=== PATIENT | male | born 1945 | race Caucasian/White ===

== ENCOUNTER 2018-05-12 09:35 | Outpatient (CLI) | payer MEDICARE, BC ==
--- NOTE | 2018-05-12 11:32 | RAD ---
TWO VIEWS OF THE CHEST: COMPARISON: None. HISTORY: Generalized edema. FINDINGS: Two views of the chest show normal sized cardiomediastinal silhouette. There is no evidence of consol idation, mass, or pleural effusion. The bones are unremarkable. IMPRESSION: No evidence of acute cardiopulmonary disease. POS: [facility]
== END 2018-05-12 09:36 | disposition home or self-care (01) ==
LOC: RAD 09:35
PROVIDERS: ATTEND Physician Assistant
DX: R60.1 Generalized edema (principal)
CPT/HCPCS: 71046

== ENCOUNTER 2018-05-12 14:18 | Inpatient (IN) | payer MEDICARE, BC ==
[2018-05-12 16:12] LABS: #Basophils 0.1 thou/uL (0.0-0.2); #Lymphocytes 1.7 thou/uL (1.20-3.40); #Monocytes 0.6 thou/uL (0.11-0.59); #Neutrophils 15.7 thou/uL (1.40-6.50); %Basophils 0.4 % (0.0-1.0); %Eosinophils 0.2 % (0.0-10.0); %Lymphocytes 9.3 % (21.0-51.0); %Monocytes 3.2 % (0.0-10.0); %Neutrophils 86.9 % (42.0-75.0); Hemoglobin 17.1 g/dL (14.0-18.0); Mean Corpuscular HGB CONC 33.2 g/dL (32.0-36.0); Mean Corpuscular Hemoglobin 30.9 pg (27.0-31.0); Mean Corpuscular Volume 93.2 fL (78.0-98.0); Mean Platelet Volume 8.6 fL (7.4-10.4); Platelet Count 347 thou/uL (130-400); Red Blood Cell (RBC) Count 5.55 mill/uL (4.70-6.10)
[2018-05-12 17:07] LABS: ALT (SGPT) 23 U/L (8-55); AST (SGOT) 43 U/L (5-34); Albumin 2.1 g/dL (3.4-4.8); Alkaline Phosphatase 143 U/L (40-150); Anion Gap 17 mmol/L (10-20); BUN (Urea Nitrogen) 48 mg/dL (8.4-25.7); Bilirubin, Total 0.4 mg/dL (0.2-1.2); Calc. Creatinine Clearance 0 mL/min (70-130); Calcium 8.3 mg/dL (7.8-10.44); Carbon Dioxide 17 mmol/L (23-31); Chloride 95 mmol/L (98-107); Estimated GFR-MDRD 64; Globulin 3.9 g/dL (2.4-3.5); Glucose 107 mg/dL (83-110); Potassium 5.3 mmol/L (3.5-5.1); Sodium 124 mmol/L (136-145)
[2018-05-12 18:13] LABS: Bilirubin Small (Negative); Blood, Urine Large (Negative); Clarity CLOUDY (Clear); Glucose, Urine (Dipstick) Negative (Negative); Leukocyte Negative (Negative); Nitrite Negative (Negative); Protein, Urine (Dipstick) > or equal to 300 mg/dL (Neg-Trace); Specific Gravity, Urine 1.029 (1.002-1.036); Urobilinogen 0.2 mg/dL (0.2-1.0); pH, Urine 5.5 (5.0-9.0)
[2018-05-12 18:18] LABS: Bacteria/HPF None Seen HPF (None Seen); RBC/HPF 21-50 HPF (0-3)
[2018-05-12 18:21] LABS: Pathc Cast-AUWi Flag 38.22 (0-2.49)
[2018-05-12 18:39] LABS: Hyaline Casts/LPF 4-6 HYALINE CAST LPF (0-3 Hyaline); Renal Epithelial None Seen HPF (0-3); Transitional Epithelial NONE SEEN HPF (0-3)
[2018-05-12] MEDS ORDERED: cefTRIAXone\\ROCEPHIN 2 GM VIAL ONE (19:02)
[2018-05-12] MEDS ORDERED: Furosemide 20 MG/2 ML VIAL ONE (19:02)
[2018-05-12] MEDS ORDERED: Acetaminophen 325 MG TAB PO PRN (21:11)
[2018-05-12] MEDS ORDERED: HYDROcodone/Acetaminophen 5/325 mg Tablet PO PRN ×2 (21:11)
[2018-05-12] MEDS ORDERED: Ondansetron PF 4 MG/2 ML Vial IVP PRN (21:11)
[2018-05-12] MEDS ORDERED: Ondansetron ODT 4 MG TAB SL PRN (21:11)
[2018-05-12] MEDS: Sodium Chloride 0.9% 1,000 ML IV SCH (21:29)
[2018-05-12 21:30] VITALS: BMI 29.0
[2018-05-12] MEDS ORDERED: Zolpidem Tartrate 5 MG TAB PO PRN (22:30)
[2018-05-12] MEDS ORDERED: Sodium Chloride 0.9% 1,000 ML IV SCH (22:45)
--- NOTE | 2018-05-12 23:17 | PDOC.EVN ---
Event Note - Event Note Event Note: H&P [id number]
--- NOTE | 2018-05-12 23:47 | HP ---
CHIEF COMPLAINT: Lower extremity swelling. HISTORY OF PRESENT ILLNESS: This is a 72-year-old male complaining for the past 2 to 3 weeks he has noted lower extremity edema. The patient states that the swelling significantly got worse in the last 2 to 3 days, so he decided to come to the ER. The patient was also noted to have pressure-like pain in his left and right lower extremities. The patient states that he does have dyspnea on exertion as well as some mild chest discomfort when he is exerting himself. The patient states that he otherwise denies any other alleviating or aggravating factors. Admits to prior medical history of hypertension and prostate hypertrophy. The patient states that he otherwise has no other associated complaints. No alleviating or aggravating factors. States that this has never happened before. The patient was seen and examined in the ER. Daughter at bedside. All questions answered. ALLERGIES: NO KNOWN DRUG ALLERGIES. REVIEW OF SYSTEMS: All systems reviewed, pertinent positives in HPI, otherwise negative. HOME MEDICATIONS: See MAR. PAST MEDICAL HISTORY: Positive for hypertension and prostate hypertrophy. SOCIAL HISTORY: Nondrinker, nonsmoker. FAMILY HISTORY: Hypertension. PHYSICAL EXAMINATION: VITAL SIGNS: Blood pressure is 151/80, respiratory rate of 16, O2 saturation 98% on room air, temperature of 97.4. GENERAL: The patient is lying in bed with no acute discomfort. HEENT: Oral cavity is moist and pink. Pupils are equal, round, and reactive to light and accommodation. NECK: Supple, mobile, nontender thyroid appreciated. RESPIRATORY: Clear to auscultation bilaterally. No rales, wheezing, or rhonchi appreciated. CARDIOVASCULAR: S1, S2. No murmurs, rubs, or gallops appreciated. ABDOMEN: Positive bowel sounds. Soft, nontender, nondistended. EXTREMITIES: 2+ peripheral pulses, lower extremities, 1+ pitting edema on the upper thigh as well as upper extremity as well as 2+ pitting edema on the lower extremity by castro. NEUROLOGICAL: Cranial nerves 2 through 12 are intact. No loss of motor or sensory function. LABORATORY DATA: CBC shows a WBC count of 18, otherwise normal. Basic metabolic panel shows a serum sodium of 124, potassium of 5.3, chloride 95, bicarb 17, anion gap of 17, BUN 48, creatinine of 1.13, albumin level of 2.1. Urinalysis positive for greater than 300 of protein, large amount of blood, small bilirubin, rbc's, wbc's, squamous epithelial cells, and hyaline casts. ASSESSMENT: 1. Lower extremity edema. 2. Hypertension. 3. Hyperlipidemia. 4. Leukocytosis. 5. Hyponatremia. 6. Heart failure. 7. Hypoalbuminemia. 8. Proteinuria. 9. Nephrotic syndrome ? PLAN: At this point in time, we will admit this patient to internal medicine team. Start the patient on IV fluids as well as diuretics to have a net negative loss of water and a net positive gain of serum sodium. We will also obtain urine sodium, urine creatinine as well as BMP in the a.m. to determine urine sodium excretion fraction. We will also obtain echocardiogram for any potential role of heart failure. The patient wishes to remain a full code. Consult to Nephrology. Case and plan were discussed with the patient and daughter at length. They understand and agree with this plan. Job ID: [id number]
[2018-05-13 04:34] LABS: Creatinine, Urine 149.08 mg/dL (63-166); Sodium, Urine Less than 20 mmol/L (Not Available)
[2018-05-13] MEDS: Sodium Chloride 0.9% 1,000 ML IV SCH (04:51)
[2018-05-13 08:07] LABS: #Basophils 0.1 thou/uL (0.0-0.2); #Eosinphils 0.1 thou/uL (0.0-0.7); #Lymphocytes 2.5 thou/uL (1.20-3.40); #Monocytes 0.8 thou/uL (0.11-0.59); %Basophils 0.5 % (0.0-1.0); %Eosinophils 0.8 % (0.0-10.0); %Monocytes 6.2 % (0.0-10.0); %Neutrophils 72.5 % (42.0-75.0); Hemoglobin 16.2 g/dL (14.0-18.0); Mean Corpuscular HGB CONC 33.5 g/dL (32.0-36.0); Mean Corpuscular Hemoglobin 30.9 pg (27.0-31.0); Mean Corpuscular Volume 92.3 fL (78.0-98.0); Platelet Count 312 thou/uL (130-400); Red Blood Cell (RBC) Count 5.24 mill/uL (4.70-6.10); White Blood Cell (WBC) Count 12.3 thou/uL (4.8-10.8)
[2018-05-13 08:20] LABS: Anion Gap 11 mmol/L (10-20); BUN (Urea Nitrogen) 48 mg/dL (8.4-25.7); Calc. Creatinine Clearance 88 mL/min (70-130); Calcium 7.3 mg/dL (7.8-10.44); Carbon Dioxide 22 mmol/L (23-31); Chloride 97 mmol/L (98-107); Estimated GFR-MDRD 70; Glucose 80 mg/dL (83-110); Potassium 4.3 mmol/L (3.5-5.1); Sodium 126 mmol/L (136-145)
[2018-05-13] MEDS: Furosemide 40 MG/4 ML VIAL SLOW IVP SCH (08:31)
[2018-05-13] MEDS: Heparin 5,000 UNITS/ML VIAL SC SCH ×2 (08:33→19:52)
[2018-05-13] MEDS ORDERED: Sodium Chloride 0.9% 1,000 ML IV SCH (11:45)
--- NOTE | 2018-05-13 14:50 | ULT ---
RENAL ULTRASOUND: DATE: 05/13/2018. PROVIDED CLINICAL HISTORY: Acute kidney injury. FINDINGS: The right kidney measures about 11.7 x 6 x 5.4 cm and demonstrates no hydronephrosis or mass. The left kidney measures about 11. X 6.3 x 5.5 cm and demonstrates no evidence for hydronephrosis or mass. The urinary bladder is decompressed by Flannery catheter and not evaluated. IMPRESSION: No evidence for hydronephrosis. POS: [facility]
--- NOTE | 2018-05-13 15:47 | CON ---
DATE OF CONSULTATION: 05/13/2018 CONSULTING PHYSICIAN: Ayo Crane DO. REASON FOR CONSULT: Edema. REASON FOR ADMISSION: Edema. HISTORY OF PRESENT ILLNESS: A 72-year-old male with history of hypertension, BPH, came to the hospital with edema. The patient has been having swelling in the legs for the last 2-3 days. No shortness of breath. No chest pain. No palpitation. No fever or chills. No nausea or vomiting. No abdominal pain. PAST MEDICAL HISTORY: Positive for hypertension and BPH. PAST SURGICAL HISTORY: Appendectomy. HOME MEDICATIONS: 1. Dutasteride. 2. Furosemide. 3. Fosinopril. 4. Tamsulosin. ALLERGIES: NO KNOWN DRUG ALLERGIES. SOCIAL HISTORY: No smoking, alcohol, or illicit drugs. FAMILY HISTORY: No history of any kidney disease. REVIEW OF SYSTEMS: CONSTITUTIONAL: Negative for weight loss or gain, ability to conduct usual activities. SKIN: Negative for rash, itching. EYES: Negative for double vision, pain. ENT/MOUTH: Negative for nose bleeding, neck stiffness, pain, tenderness. CARDIOVASCULAR: Negative for palpitations, dyspnea on exertion, orthopnea. RESPIRATORY: Negative for shortness of breath, wheezing, cough, hemoptysis, fever or night sweats. GASTROINTESTINAL: Negative for poor appetite, abdominal pain, heartburn, nausea, vomiting, constipation, or diarrhea. GENITOURINARY: Negative for urgency, frequency, dysuria, nocturia. MUSCULOSKELETAL: Negative for pain, swelling. NEUROLOGIC/PSYCHIATRIC: Negative for anxiety, depression. ALLERGY/IMMUNOLOGIC: Negative for skin rash, bleeding tendency. PHYSICAL EXAMINATION: GENERAL: Reveals a well-built male in no apparent distress. VITAL SIGNS: Temperature 98.1, pulse 75, respiratory rate 18, blood pressure 148/79. HEENT: Atraumatic and normocephalic. Oral mucosa is moist. NECK: Supple. CVS: S1 and S2 heard. Regular rate and rhythm. RESPIRATORY: Clear. GI: Abdomen is soft. MUSCULOSKELETAL: 2 to 3+ edema. DERMATOLOGIC: No skin rash. NEUROLOGIC: Alert and awake. PSYCHIATRIC: Mood and affect normal. LABORATORY DATA: Hemoglobin is 16.2. Potassium is 4.3, sodium is 126, BUN is 48, creatinine is 1.04. ASSESSMENT AND PLAN: 1. Acute kidney injury. Renal function stable. 2. Hyponatremia, limit fluid intake. 3. Hyperkalemia, better. 4. Metabolic acidosis, stable. 5. Heavy proteinuria. Almost have 9 g of protein. We will check immunological workup. No history of any diabetes. We will check A1c. 6. Hypoalbuminemia, secondary to proteinuria. 7. Plan is to have immunological workup and the patient might need a renal biopsy. We will check renal ultrasound. Thank you for the consult. Job ID: [id number]
--- NOTE | 2018-05-13 16:41 | PDOC.PN ---
- Subjective Encounter Start Date: 05/13/18 Encounter Start Time: 09:00 - Objective Resuscitation Status - Order Detail: 05/12/18 22:30 Resuscitation Status Routine Resuscitation Status: FULL: Full Resuscitation Discussed with: patient FERN Reviewed: Yes Vital Signs & Weight: Vital Signs (12 hours) Temp Pulse Resp BP Pulse Ox 05/13/18 11:29 98.1 F 75 18 148/79 H 95 05/13/18 08:00 98.1 F 79 20 149/74 H 95 Weight Weight 213 lb 12.8 oz I&O: 05/12/18 05/13/18 05/14/18 06:59 06:59 06:59 Intake Total 1200 Output Total 400 Balance 800 Result Diagrams: 05/13/18 06:49 05/13/18 06:49 Additional Labs: labs reviewed by me Phys Exam - Physical Examination Constitutional: NAD HEENT: moist MMs, sclera anicteric, oral pharynx no lesions, 2+ tonsils Neck: no nodes, no JVD, supple, full ROM Respiratory: clear to auscultation bilateral Cardiovascular: RRR, no rub S1, S2 Gastrointestinal: soft, non-tender, no distention, positive bowel sounds Neurological: moves all 4 limbs Psychiatric: normal affect, A&O x 3 Dx/Plan (1) Hyponatremia Code(s): E87.1 - HYPO-OSMOLALITY AND HYPONATREMIA Status: Acute Comment: sodium improved to 126 today (2) Swelling of lower extremity Code(s): M79.89 - OTHER SPECIFIED SOFT TISSUE DISORDERS Status: Acute Comment: await 2D echo, continue furosemide (3) BPH (benign prostatic hyperplasia) Code(s): N40.0 - BENIGN PROSTATIC HYPERPLASIA WITHOUT LOWER URINRY TRACT SYMP Status: Chronic Comment: continue finasteride and tamsulosin, stable (4) HTN (hypertension) Code(s): I10 - ESSENTIAL (PRIMARY) HYPERTENSION Status: Chronic Comment: resume home medications, monitor vital signs and titrate antihypertensives as needed - Plan * . Review of Systems - Review of Systems Constitutional: negative: fever, chills, sweats, weakness, malaise Respiratory: negative: Cough, Shortness of Breath, SOB with Excertion, Pleuritic Pain, Wheezing Cardiovascular: negative: chest pain, palpitations, orthopnea, paroxysmal nocturnal dyspnea, edema, light headedness Gastrointestinal: negative: Nausea, Vomiting, Abdominal Pain, Diarrhea, Constipation, Melena, Hematochezia Genitourinary: negative: Dysuria, Frequency, Incontinence, Hematuria, Retention - Medications/Allergies Allergies/Adverse Reactions: Allergies Allergy/AdvReac Type Severity Reaction Status Date / Time No Known Drug Allergies Allergy Verified 05/12/18 21:11 Medications: Current Medications Furosemide (Lasix) 40 mg SLOW IVP DAILY [facility] Last Admin: 05/13/18 08:31 Dose: 40 mg Heparin Sodium (Porcine) (Heparin) 5,000 units SC BID [facility] Last Admin: 05/13/18 08:33 Dose: 5,000 units Ceftriaxone Sodium 1 gm/ (Sodium Chloride) 100 mls @ 200 mls/hr IVPB Q24HR [facility] Tamsulosin HCl (Flomax) 0.4 mg PO QPM [facility] Zolpidem Tartrate (Ambien) 5 mg PO HSPRN PRN PRN Reason: Insomnia
[2018-05-13 16:44] LABS: Anion Gap 11 mmol/L (10-20); BUN (Urea Nitrogen) 50 mg/dL (8.4-25.7); Calc. Creatinine Clearance 75 mL/min (70-130); Calcium 7.4 mg/dL (7.8-10.44); Carbon Dioxide 24 mmol/L (23-31); Chloride 99 mmol/L (98-107); Estimated GFR-MDRD 58; Glucose 113 mg/dL (83-110); Potassium 4.7 mmol/L (3.5-5.1); Sodium 129 mmol/L (136-145)
[2018-05-13] MEDS: cefTRIAXone\\ROCEPHIN 1 GM in Sodium Chloride 0.9% 100 ML IVPB SCH (17:06)
[2018-05-13] MEDS: Tamsulosin HCl 0.4 MG CAP PO SCH (19:52)
[2018-05-14] MEDS: Dutasteride 0.5 MG CAP PO SCH (08:26)
[2018-05-14] MEDS: Furosemide 40 MG/4 ML VIAL SLOW IVP SCH (08:26)
[2018-05-14] MEDS: Heparin 5,000 UNITS/ML VIAL SC SCH ×2 (08:28→20:52)
[2018-05-14 09:13] LABS: #Basophils 0.1 thou/uL (0.0-0.2); #Eosinphils 0.1 thou/uL (0.0-0.7); #Lymphocytes 1.4 thou/uL (1.20-3.40); #Monocytes 0.5 thou/uL (0.11-0.59); #Neutrophils 8.8 thou/uL (1.40-6.50); %Basophils 0.5 % (0.0-1.0); %Eosinophils 0.5 % (0.0-10.0); %Lymphocytes 13.1 % (21.0-51.0); %Monocytes 4.2 % (0.0-10.0); %Neutrophils 81.7 % (42.0-75.0); Hemoglobin 16.4 g/dL (14.0-18.0); Mean Corpuscular HGB CONC 33.4 g/dL (32.0-36.0); Mean Corpuscular Hemoglobin 30.3 pg (27.0-31.0); Mean Corpuscular Volume 90.9 fL (78.0-98.0); Mean Platelet Volume 8.1 fL (7.4-10.4); Platelet Count 388 thou/uL (130-400); RBC Distribution Width 13.1 % (11.5-14.5); Red Blood Cell (RBC) Count 5.39 mill/uL (4.70-6.10); White Blood Cell (WBC) Count 10.8 thou/uL (4.8-10.8)
[2018-05-14 09:27] LABS: Anion Gap 12 mmol/L (10-20); BUN (Urea Nitrogen) 59 mg/dL (8.4-25.7); Calc. Creatinine Clearance 63 mL/min (70-130); Calcium 7.8 mg/dL (7.8-10.44); Carbon Dioxide 24 mmol/L (23-31); Chloride 96 mmol/L (98-107); Estimated GFR-MDRD 47; Glucose 133 mg/dL (83-110); Potassium 4.7 mmol/L (3.5-5.1); Sodium 127 mmol/L (136-145)
--- NOTE | 2018-05-14 16:58 | PDOC.PN ---
- Subjective Encounter Start Date: 05/14/18 Encounter Start Time: 09:40 Pt seen for followup re: hyponatremia. Feels well, no complaints. - Objective Resuscitation Status - Order Detail: 05/12/18 22:30 Resuscitation Status Routine Resuscitation Status: FULL: Full Resuscitation Discussed with: patient Vital Signs & Weight: Vital Signs (12 hours) Temp Pulse Resp BP Pulse Ox 05/14/18 16:00 97.9 F 81 16 130/79 98 05/14/18 11:32 97.8 F 80 16 123/79 97 05/14/18 08:00 97 05/14/18 07:38 97.9 F 81 16 122/72 97 Weight Weight 213 lb 12.8 oz I&O: 05/13/18 05/14/18 05/15/18 06:59 06:59 06:59 Intake Total 1200 2350 Output Total 400 1150 Balance 800 1200 Result Diagrams: 05/14/18 09:00 05/14/18 09:00 Phys Exam - Physical Examination Constitutional: NAD HEENT: moist MMs Neck: supple Respiratory: clear to auscultation bilateral Cardiovascular: RRR Gastrointestinal: soft Musculoskeletal: edema present Neurological: moves all 4 limbs Psychiatric: normal affect Dx/Plan (1) Hyponatremia Code(s): E87.1 - HYPO-OSMOLALITY AND HYPONATREMIA Status: Acute Comment: sodium improved to 127 today (2) ANALIA (acute kidney injury) Code(s): N17.9 - ACUTE KIDNEY FAILURE, UNSPECIFIED Status: Acute Comment: Likely due to diuretic use, follow creatinine and lytes (3) Swelling of lower extremity Code(s): M79.89 - OTHER SPECIFIED SOFT TISSUE DISORDERS Status: Acute Comment: continue furosemide (4) BPH (benign prostatic hyperplasia) Code(s): N40.0 - BENIGN PROSTATIC HYPERPLASIA WITHOUT LOWER URINRY TRACT SYMP Status: Chronic Comment: stable. DANIELLE Flannery (5) HTN (hypertension) Code(s): I10 - ESSENTIAL (PRIMARY) HYPERTENSION Status: Chronic Comment: controlled - Plan * . Nephrology considering renal biopsy for proteinuria as outpatient. ANALIA today, likely due to diuretics. Review of Systems - Review of Systems Cardiovascular: negative: chest pain, palpitations, orthopnea, paroxysmal nocturnal dyspnea, edema, light headedness Gastrointestinal: negative: Nausea, Vomiting, Abdominal Pain, Diarrhea, Constipation, Melena, Hematochezia - Medications/Allergies Allergies/Adverse Reactions: Allergies Allergy/AdvReac Type Severity Reaction Status Date / Time No Known Drug Allergies Allergy Verified 05/12/18 21:11 Medications: Current Medications Dutasteride (Avodart) 0.5 mg PO DAILY [facility] Last Admin: 05/14/18 08:26 Dose: 0.5 mg Furosemide (Lasix) 40 mg SLOW IVP DAILY [facility] Last Admin: 05/14/18 08:26 Dose: 40 mg Heparin Sodium (Porcine) (Heparin) 5,000 units SC BID [facility] Last Admin: 05/14/18 08:28 Dose: 5,000 units Ceftriaxone Sodium 1 gm/ (Sodium Chloride) 100 mls @ 200 mls/hr IVPB Q24HR [facility] Last Admin: 05/13/18 17:06 Dose: 100 mls Tamsulosin HCl (Flomax) 0.4 mg PO QPM [facility] Last Admin: 05/13/18 19:52 Dose: 0.4 mg Zolpidem Tartrate (Ambien) 5 mg PO HSPRN PRN PRN Reason: Insomnia
[2018-05-14] MEDS: cefTRIAXone\\ROCEPHIN 1 GM in Sodium Chloride 0.9% 100 ML IVPB SCH (17:07)
--- NOTE | 2018-05-14 20:23 | PRG ---
DATE OF SERVICE: 05/14/2018 SUBJECTIVE: Patient was seen and examined at bedside and overnight events noted. Patient denies any shortness of breath or chest pain or palpitation. No history of nausea or vomiting or diarrhea or fever or chills or cramps. OBJECTIVE: GENERAL: This is a well-built male, in no acute distress. VITAL SIGNS: Temperature 97.9, pulse 81, respiratory rate 16, blood pressure 130/79. HEENT: Atraumatic, normocephalic. Oral mucosa is moist NECK: Supple. CARDIOVASCULAR: S1, S2 heard. Rate and rhythm regular. RESPIRATORY: Clear to auscultation. GASTROINTESTINAL: Abdomen is soft. MUSCULOSKELETAL: No tenderness. No edema. DERMATOLOGIC: No skin rash. NEUROLOGIC: Alert and awake and oriented X3. No focal neurologic deficits. Moving all the extremities. PSYCHIATRIC: Mood and affect normal. LABORATORY DATA: Potassium is 4.7, BUN is 59, creatinine is 1.4. ASSESSMENT AND PLAN: 1. Acute kidney injury. Bump in creatinine with Lasix. Edema is better. Plan is to hold Lasix and repeat labs in the morning. 2. Heavy proteinuria. Recheck urine studies and the patient has taken aspirin last week. Also plan is to hold aspirin for a week. The patient needs kidney biopsy as outpatient and we will follow as outpatient. Almost has 9 g. We will repeat urine studies as outpatient. 3. Hemoglobin A1c is only 5.0. No history of diabetes. 4. Metabolic acidosis. 5. Hypoalbuminemia. 6. Plan is to hold Rocephin and Lasix and recheck labs in the morning. Job ID: [id number]
[2018-05-14] MEDS: Tamsulosin HCl 0.4 MG CAP PO SCH (20:52)
[2018-05-14] MEDS ORDERED: Tamsulosin HCl 0.4 MG CAP PO SCH (22:15)
[2018-05-15 06:30] LABS: #Basophils 0.1 thou/uL (0.0-0.2); #Eosinphils 0.2 thou/uL (0.0-0.7); #Lymphocytes 2.2 thou/uL (1.20-3.40); #Monocytes 0.6 thou/uL (0.11-0.59); #Neutrophils 5.9 thou/uL (1.40-6.50); %Basophils 0.8 % (0.0-1.0); %Eosinophils 1.8 % (0.0-10.0); %Lymphocytes 24.9 % (21.0-51.0); %Monocytes 6.6 % (0.0-10.0); %Neutrophils 65.9 % (42.0-75.0); Hemoglobin 15.1 g/dL (14.0-18.0); Mean Corpuscular HGB CONC 33.2 g/dL (32.0-36.0); Mean Corpuscular Hemoglobin 30.8 pg (27.0-31.0); Mean Corpuscular Volume 92.8 fL (78.0-98.0); Mean Platelet Volume 8.6 fL (7.4-10.4); Platelet Count 327 thou/uL (130-400); RBC Distribution Width 12.7 % (11.5-14.5); Red Blood Cell (RBC) Count 4.89 mill/uL (4.70-6.10); White Blood Cell (WBC) Count 8.9 thou/uL (4.8-10.8)
[2018-05-15 06:53] LABS: Anion Gap 8 mmol/L (10-20); BUN (Urea Nitrogen) 70 mg/dL (8.4-25.7); Calc. Creatinine Clearance 71 mL/min (70-130); Calcium 7.3 mg/dL (7.8-10.44); Carbon Dioxide 24 mmol/L (23-31); Chloride 96 mmol/L (98-107); Estimated GFR-MDRD 55; Glucose 105 mg/dL (83-110); Sodium 124 mmol/L (136-145)
[2018-05-15] MEDS: Heparin 5,000 UNITS/ML VIAL SC SCH ×2 (08:55→20:45)
[2018-05-15] MEDS: Dutasteride 0.5 MG CAP PO SCH (08:55)
[2018-05-15 12:22] LABS: Sodium 123 mmol/L (136-145)
--- NOTE | 2018-05-15 13:01 | PRG ---
DATE OF SERVICE: 05/15/2018 SUBJECTIVE: A 72-year-old gentleman being seen for acute kidney injury. Patient had nausea and , pulse 84, breathing 16, blood pressure 128/74. OBJECTIVE: See above. Awake, alert, in no acute distress. GENERAL APPEARANCE AND MENTAL STATUS: Fair. HEAD/NECK: Normocephalic. Atraumatic. EYES: EOMI. No deformity. EARS: Clear. No ulcers. NOSE: Intact. No lesions. MOUTH: Clear. No discharge. THROAT: Clear. No exudate. LUNGS: Clear. No crackles. CARDIAC: S1, S2. No rub. ABDOMEN: Benign. Bowel sounds positive. GENITALIA/RECTUM: Flannery absent. BACK/EXTREMITIES: Edema 0+. NEUROLOGICAL: Alert and motor intact. SKIN: LYMPHATICS: LABORATORY DATA: Hemoglobin 15, creatinine 1.2. Sodium 124. IMPRESSION AND PLAN: 1. Acute kidney injury, improved. 2. Hypertension stable. 3. Anemia stable. 4. Proteinuria. Kidney biopsy planned. 5. Hyponatremia. Recommend fluid restriction. 6. We will follow renal function closely. Job ID: [id number]
--- NOTE | 2018-05-15 15:13 | PDOC.PN ---
- Subjective Encounter Start Date: 05/15/18 Encounter Start Time: 09:20 Pt seen for followup re: hyponatremia. feels slightly weak, no other complaints. - Objective Resuscitation Status - Order Detail: 05/12/18 22:30 Resuscitation Status Routine Resuscitation Status: FULL: Full Resuscitation Discussed with: patient Vital Signs & Weight: Vital Signs (12 hours) Temp Pulse Resp BP Pulse Ox 05/15/18 08:00 96 05/15/18 07:53 98.1 F 84 18 128/74 96 Weight Weight 213 lb 12.8 oz I&O: 05/14/18 05/15/18 05/16/18 06:59 06:59 06:59 Intake Total 2350 1100 Output Total 1150 450 Balance 1200 650 Result Diagrams: 05/15/18 05:47 05/15/18 11:27 Phys Exam - Physical Examination Constitutional: NAD HEENT: moist MMs Neck: supple Respiratory: clear to auscultation bilateral Cardiovascular: RRR Gastrointestinal: soft Neurological: moves all 4 limbs Psychiatric: normal affect Dx/Plan (1) Hyponatremia Code(s): E87.1 - HYPO-OSMOLALITY AND HYPONATREMIA Status: Acute Comment: sodium worse, 124 today. Recheck (2) Swelling of lower extremity Code(s): M79.89 - OTHER SPECIFIED SOFT TISSUE DISORDERS Status: Acute Comment: continue furosemide (3) BPH (benign prostatic hyperplasia) Code(s): N40.0 - BENIGN PROSTATIC HYPERPLASIA WITHOUT LOWER URINRY TRACT SYMP Status: Chronic Comment: stable. Flannery discontinued yesterday (4) HTN (hypertension) Code(s): I10 - ESSENTIAL (PRIMARY) HYPERTENSION Status: Chronic Comment: controlled (5) ANALIA (acute kidney injury) Code(s): N17.9 - ACUTE KIDNEY FAILURE, UNSPECIFIED Status: Resolved - Plan plan discussed w/ family, out of bed/ambulate * . Review of Systems - Review of Systems Constitutional: weakness Cardiovascular: negative: chest pain, palpitations, orthopnea, paroxysmal nocturnal dyspnea, edema, light headedness Gastrointestinal: Diarrhea. negative: Nausea, Vomiting, Abdominal Pain, Constipation, Melena, Hematochezia - Medications/Allergies Allergies/Adverse Reactions: Allergies Allergy/AdvReac Type Severity Reaction Status Date / Time No Known Drug Allergies Allergy Verified 05/12/18 21:11 Medications: Current Medications Dutasteride (Avodart) 0.5 mg PO DAILY [facility] Last Admin: 05/15/18 08:55 Dose: 0.5 mg Heparin Sodium (Porcine) (Heparin) 5,000 units SC BID [facility] Last Admin: 05/15/18 08:55 Dose: 5,000 units Tamsulosin HCl (Flomax) 0.4 mg PO QPM [facility] Last Admin: 05/14/18 20:52 Dose: 0.4 mg Zolpidem Tartrate (Ambien) 5 mg PO HSPRN PRN PRN Reason: Insomnia
[2018-05-15 15:15] LABS: Kappa Lambda Light Chain Ratio 2.23 (0.26-1.65); Kappa Light Chains 46.4 mg/L (3.3-19.4); Lambda Light Chain 20.8 mg/L (5.7-26.3)
[2018-05-15 16:24] LABS: ANA Symphony (Qualitative) Negative (Negative); ANA Symphony (Quantitative) 0.1 Ratio (< 0.7 Negative); EliA Vaculitis New Method **** NEW METHOD ****; Glomerular Basemt Membrane Ab Less than 1.9 EliAU/mL (<7 Negative)
[2018-05-15] MEDS ORDERED: Tamsulosin HCl 0.4 MG CAP PO SCH (21:00)
[2018-05-16 08:07] VITALS: BP 99/60; TEMP 97.7
[2018-05-16] MEDS: Dutasteride 0.5 MG CAP PO SCH (08:29)
[2018-05-16] MEDS: Heparin 5,000 UNITS/ML VIAL SC SCH (08:29)
[2018-05-16 08:31] LABS: #Basophils 0.1 thou/uL (0.0-0.2); #Eosinphils 0.1 thou/uL (0.0-0.7); #Lymphocytes 2.5 thou/uL (1.20-3.40); #Monocytes 0.6 thou/uL (0.11-0.59); #Neutrophils 6.5 thou/uL (1.40-6.50); %Basophils 1.3 % (0.0-1.0); %Eosinophils 1.5 % (0.0-10.0); %Lymphocytes 25.8 % (21.0-51.0); %Monocytes 5.6 % (0.0-10.0); %Neutrophils 65.9 % (42.0-75.0); Hemoglobin 17.2 g/dL (14.0-18.0); Mean Corpuscular HGB CONC 33.4 g/dL (32.0-36.0); Mean Corpuscular Hemoglobin 30.9 pg (27.0-31.0); Mean Corpuscular Volume 92.6 fL (78.0-98.0); Mean Platelet Volume 8.2 fL (7.4-10.4); Platelet Count 354 thou/uL (130-400); RBC Distribution Width 12.9 % (11.5-14.5); Red Blood Cell (RBC) Count 5.57 mill/uL (4.70-6.10); White Blood Cell (WBC) Count 9.8 thou/uL (4.8-10.8)
[2018-05-16 08:41] LABS: Anion Gap 10 mmol/L (10-20); BUN (Urea Nitrogen) 72 mg/dL (8.4-25.7); Calc. Creatinine Clearance 70 mL/min (70-130); Calcium 7.9 mg/dL (7.8-10.44); Carbon Dioxide 20 mmol/L (23-31); Chloride 99 mmol/L (98-107); Estimated GFR-MDRD 54; Glucose 114 mg/dL (83-110); Potassium 4.4 mmol/L (3.5-5.1); Sodium 125 mmol/L (136-145)
--- NOTE | 2018-05-16 12:31 | PRG ---
DATE OF SERVICE: 05/16/2018 SUBJECTIVE: A 72-year-old gentleman, being seen for acute kidney injury. The patient denied nausea, vomiting, or chest pain. OBJECTIVE: GENERAL: The patient is awake and alert. VITAL SIGNS: Afebrile, pulse 96, breathing 16, blood pressure 99/60. GENERAL APPEARANCE AND MENTAL STATUS: Fair. HEAD/NECK: Normocephalic. Atraumatic. EYES: EOMI. No deformity. EARS: Clear. No ulcers. NOSE: Intact. No lesions. MOUTH: Clear. No discharge. THROAT: Clear. No exudate. LUNGS: Clear. No crackles. CARDIAC: S1, S2. No rub. ABDOMEN: Benign. Bowel sounds positive. GENITALIA/RECTUM: Flannery absent. BACK/EXTREMITIES: Edema 0+. NEUROLOGICAL: Alert and motor intact. SKIN: LYMPHATICS: LABORATORY DATA: Labs show sodium is 125, creatinine 1.3. IMPRESSION: 1. Acute kidney injury, improved. 2. Hypertension, stable. 3. Anemia, stable. 4. Proteinuria. Follow up with Dr. Crandall. 5. Hyponatremia. Recommend 1000 mL fluid restriction. Recheck sodium in 24 to 48 hours. The patient will follow up with Dr. Crandall in 48 hours. Job ID: [id number]
--- NOTE | 2018-05-16 23:57 | DIS ---
DATE OF ADMISSION: 05/12/2018 DATE OF DISCHARGE: 05/16/2018 PRIMARY CARE PROVIDER: Dr. Lul Resendiz. DISCHARGE DIAGNOSES: 1. Hyponatremia. 2. Acute on chronic kidney disease, stage 3. 3. Proteinuria. CONDITION OF PATIENT ON THE DAY OF DISCHARGE: Stable. I assessed Mr. Martinez on the day of discharge. He denies any chest pain or shortness of breath. Vital signs are stable. S1 and S2 are heard, regular. Lungs are clear to auscultation bilaterally. CONSULTATIONS DURING THIS HOSPITALIZATION: Nephrology, Dr. Crandall. DISCHARGE MEDICATIONS: 1. Dutasteride 0.5 mg daily. 2. Fosinopril 10 mg daily. 3. Tamsulosin 0.8 mg at bedtime. HOSPITAL COURSE: Mr. Martinez is a pleasant 72-year-old gentleman, who was admitted to [facility] on 05/12/2018, for hyponatremia. Please refer to Dr. Crane's history and physical note dated 05/12/2018, for further details. He had a renal ultrasound, which did not show any evidence of hydronephrosis. He was also found to have proteinuria. 2D echocardiogram showed left ventricular ejection fraction of 55% to 60% and diastolic dysfunction, normal right ventricular size and function, moderately to severely dilated left atrium, moderate to severe mitral regurgitation, mitral valve prolapse, mild aortic regurgitation, and aortic valve which appeared tricuspid. He also had mild to moderate tricuspid regurgitation, and mild pulmonic regurgitation. In terms of hyponatremia, his sodium level improved after he was started on fluid restriction. He is advised to maintain fluid restriction to less than 1 L per day and to see chemical unit operator in 3 days' time. On the day of discharge, Mr. Martinez has sodium of 125, potassium 4.4, creatinine 1.3, normal white count, normal hemoglobin, and normal platelet count. Initial plan was to have renal biopsy while he was inpatient. However, he had recently taken aspirin. Nephrology Service will arrange for outpatient renal biopsy. DISCHARGE DESTINATION: Home. TOTAL AMOUNT OF TIME SPENT COORDINATING THIS DISCHARGE: 33 minutes. Many thanks for allowing me to participate in your patient's care. Please feel free to contact me with any questions or concerns. Job ID: [id number]
[2018-05-17 13:15] LABS: Cytoplasmic (C-ANCA) <1:20 titer (Neg:<1:20); Myeloperoxidase AutoAbs <9.0 U/mL (0.0-9.0); Perinuclear (P-ANCA) <1:20 titer (Neg:<1:20); Proteinase-3 AutoAbs Less than 3.5 U/mL (0.0-3.5)
== END 2018-05-16 11:51 | disposition home or self-care (01) | DRG 683 ==
LOC: ERS 14:18 → T4-A 20:51
PROVIDERS: ADMIT Internal Medicine; ATTEND Internal Medicine
DX: N17.9 Acute kidney failure, unspecified (principal); E87.1 Hypo-osmolality and hyponatremia; E87.2 Acidosis; N40.0 Benign prostatic hyperplasia without lower urinary tract symptoms; E78.5 Hyperlipidemia, unspecified; E87.5 Hyperkalemia; T50.2X5A Adverse effect of carbonic-anhydrase inhibitors, benzothiadiazides and other diuretics, initial encounter; D63.1 Anemia in chronic kidney disease; I12.9 Hypertensive chronic kidney disease with stage 1 through stage 4 chronic kidney disease, or unspecified chronic kidney disease; N18.3 Chronic kidney disease, stage 3 (moderate); R80.9 Proteinuria, unspecified; I08.3 Combined rheumatic disorders of mitral, aortic and tricuspid valves
CPT/HCPCS: 36415; 51701; 71046; 76770; 80048; 80053; 81003; 81015; 82570; 83036; 83516; 83520; 83880; 83883; 84156; 84300; 84443; 84484; 85025; 86038; 86225; 86256; 93005; 93306; 94760; 96365; 96367; 96375; J0696; J1644; J1940; J3370; J7050

== ENCOUNTER 2018-05-22 08:08 | Day surgery (SDC) | payer MEDICARE, BC ==
[2018-05-22 08:46] LABS: PTT 22.4 SEC (22.9-36.1)
[2018-05-22] MEDS ORDERED: Sodium Bicarbonate 2.5 MEQ/5 ML VIAL ONE (09:57)
[2018-05-22] MEDS ORDERED: Fentanyl 100 MCG/2 ML VIAL ONE (09:57)
[2018-05-22] MEDS ORDERED: Midazolam HCl 2 mg/2 ml Vial ONE (09:57)
[2018-05-22] MEDS ORDERED: Lidocaine 1% PF 5 ML VIAL ONE (09:57)
[2018-05-22 11:22] VITALS: BMI 29.5
[2018-05-22 11:23] VITALS: BP 164/92; TEMP 97.4
--- NOTE | 2018-05-22 12:01 | CT ---
FCT GUIDED RIGHT RENAL BIOPSY: CLINICAL HISTORY: Proteinuria, chronic kidney disease, edema. PROCEDURE: Informed consent was obtained and the patient was escorted to the procedural suite, placed in prone p osition. Conscious sedation for a total of 45 minutes was performed, administered by the radiology nu rse, with the patient consistently monitored throughout the duration of the exam in stable condition. The patient's right flank was prepped and draped in a standard sterile fashion and topical anesthesi a with buffered 1% lidocaine was performed. After a small skin incision was made, a 17-gauge trocar a nd an 18-gauge needle were advanced to the leading edge of the lower pole of the right kidney. After adequate placement was confirmed with CT fluoroscopic imaging, 3 subsequent core specimens of the rig ht renal parenchyma were obtained via percutaneous biopsy. These were confirmed with CT fluoroscopic imaging and the specimens were submitted to the pathologist for adequacy. Specimens were deemed adequ ate for interpretation. Therefore, all devices were then removed from the patient. No unexpected procedural complications were present. The patient was monitored in radiology holding i n stable condition prior to discharge with family member. IMPRESSION: Technically successful percutaneous right renal biopsy. Pathology results are pending. Transcribed Date/Time: 05/22/2018 12:00 PM
--- NOTE | 2018-05-23 15:20 | CT ---
FCT GUIDED RIGHT RENAL BIOPSY: CLINICAL HISTORY: Proteinuria, chronic kidney disease, edema. PROCEDURE: Informed consent was obtained and the patient was escorted to the procedural suite, placed in prone p osition. Conscious sedation for a total of 45 minutes was performed, administered by the radiology nu rse, with the patient consistently monitored throughout the duration of the exam in stable condition. The patient's right flank was prepped and draped in a standard sterile fashion and topical anesthesi a with buffered 1% lidocaine was performed. After a small skin incision was made, a 17-gauge trocar a nd an 18-gauge needle were advanced to the leading edge of the lower pole of the right kidney. After adequate placement was confirmed with CT fluoroscopic imaging, 3 subsequent core specimens of the rig ht renal parenchyma were obtained via percutaneous biopsy. These were confirmed with CT fluoroscopic imaging and the specimens were submitted to the pathologist for adequacy. Specimens were deemed adequ ate for interpretation. Therefore, all devices were then removed from the patient. No unexpected procedural complications were present. The patient was monitored in radiology holding i n stable condition prior to discharge with family member. IMPRESSION: Technically successful percutaneous right renal biopsy. Pathology results are pending. Transcribed Date/Time: 05/23/2018 3:19 PM
== END 2018-05-22 12:10 | disposition home or self-care (01) ==
LOC: RAD 08:08
PROVIDERS: ATTEND Internal Medicine Nephrology
PROC: 0TB03ZX Excision of Right Kidney, Percutaneous Approach, Diagnostic (ICD-10-PCS; principal; 2018-05-22)
DX: R80.9 Proteinuria, unspecified (principal); I12.9 Hypertensive chronic kidney disease with stage 1 through stage 4 chronic kidney disease, or unspecified chronic kidney disease; N18.3 Chronic kidney disease, stage 3 (moderate); N17.9 Acute kidney failure, unspecified; N40.0 Benign prostatic hyperplasia without lower urinary tract symptoms; E78.5 Hyperlipidemia, unspecified; Z79.899 Other long term (current) drug therapy
CPT/HCPCS: 36415; 50200; 77012; 85610; 85730; 88329; J2001; J2250; J3010

== ENCOUNTER 2019-07-25 11:27 | Outpatient (CLI) | payer MEDICARE, BC ==
--- NOTE | 2019-07-25 13:29 | RAD ---
LUMBAR SPINE: 07/25/19 Four views. HISTORY: Low back pain. There are moderately severe degenerative changes. Loss of disc space at all levels through L5. The L5 -S1 disc space is relatively well preserved. There is anterior wedging of the L3 and L4 vertebra which appears chronic. Anterior osteophytes are p rominent at these levels. Mild posterolisthesis at L3-4 and L4-5. Prominent facet hypertrophy. IMPRESSION: Moderately severe degenerative changes. Anterior wedging at L3 and L4 appear chronic. Mild posterolis thesis at these levels as noted. POS: AGW
== END 2019-07-25 11:28 | disposition home or self-care (01) ==
LOC: BICRAD 11:27
PROVIDERS: ATTEND Family Medicine
DX: M47.816 Spondylosis without myelopathy or radiculopathy, lumbar region (principal); M43.16 Spondylolisthesis, lumbar region
CPT/HCPCS: 72110

== ENCOUNTER 2019-07-29 15:22 | Emergency (ER) | payer MEDICARE, BC ==
[2019-07-29] MEDS ORDERED: HYDROcodone/Acetaminophen 10/325 mg Tablet ONE (16:02)
[2019-07-29] MEDS ORDERED: Cyclobenzaprine 10 MG TAB ONE (16:02)
--- NOTE | 2019-07-29 19:21 | CT ---
CT LUMBAR SPINE PERFORMED WITHOUT CONTRAST ENHANCEMENT: History: Chronic renal failure. Low back pain for several months. Currently on radiation. Comparison: Plain film examination, 07-25-2019. FINDINGS: The vertebral bodies show bony demineralization mixed with some areas of sclerosis, mainly related to endplate changes. Prominent Schmorl's node changes are seen at the L1-2 level. These are particularl y prominent. There is moderate disc narrowing at L2-3, L3-4 and L4-5. There is lucencies that extend partially through multiple of the pars in the thoracolumbar spine region. Given the multiplicity and very symmetric appearance, it is possible that these are just related to unusually prominent vascular channels. Incomplete stress type reaction in radiated bone cannot be totally excluded as a possibili ty. No paravertebral mass is seen. No signs of any sacral insufficiency fractures. L1-2: Moderate stenosis with disc bulge. L2-3: Moderately severe stenosis with disc bulge with facet and ligamentous changes. L3-4: Moderately severe stenosis again seen with facet and ligamentous hypertrophic change and disc b ulge. L4-5: Severe canal stenosis at L4-5 caused by retrolesis as well as degenerative facet and ligamentou s hypertrophic change. L5-S1: Canal is mildly stenotic at this level. IMPRESSION: Diffuse bony demineralization an unusual appearance with some areas of lucency through multiple pars levels. The multiplicity and symmetry of these would suggest that may this is just related to promine nt vascular channels, more prominently seen due to bony demineralization, but incomplete stress type fractures are not totally excluded. 2. Multilevel canal stenosis, particularly severe at L4-5. POS: TIGIST
== END 2019-07-29 19:15 | disposition home or self-care (01) ==
LOC: ERS 15:22
DX: M54.5 Low back pain (principal); I10 Essential (primary) hypertension; N40.0 Benign prostatic hyperplasia without lower urinary tract symptoms; Z79.82 Long term (current) use of aspirin; Z79.899 Other long term (current) drug therapy
CPT/HCPCS: 72131

== ENCOUNTER 2022-11-29 14:11 | Inpatient (IN) | payer MEDICARE, BC ==
[2022-11-29] MEDS ORDERED: Iopamidol-370 76% 500 ML MDV (1 ML CHARGE) ONE (14:24)
[2022-11-29] MEDS ORDERED: Metoprolol Tartrate 5 MG/5 ML VIAL ONE ×3 (14:44→15:43)
[2022-11-29] MEDS ORDERED: Acetaminophen 325 MG TAB ONE (14:49)
[2022-11-29] MEDS ORDERED: Cefepime 2 GM VIAL ONE (14:49)
[2022-11-29 15:10] LABS: #Basophils 0.1 thou/uL (0.0-0.2); #Monocytes 0.6 thou/uL (0.11-0.59); #Neutrophils 11.8 thou/uL (1.40-6.50); %Basophils 0.5 % (0.0-1.0); %Eosinophils 0.1 % (0.0-10.0); %Lymphocytes 2.6 % (21.0-51.0); %Monocytes 4.6 % (0.0-10.0); %Neutrophils 91.3 % (42.0-75.0); Hematocrit 39.6 % (42.0-52.0); Hemoglobin 13.4 g/dL (14.0-18.0); Mean Corpuscular HGB CONC 33.8 g/dL (32.0-36.0); Mean Corpuscular Hemoglobin 31.3 pg (27.0-31.0); Mean Corpuscular Volume 92.5 fl (78.0-98.0); Mean Platelet Volume 9.8 fL (7.4-10.4); Platelet Count 280 10x3/uL (130-400); RBC Distribution Width 15.6 % (11.5-14.5); Red Blood Cell (RBC) Count 4.28 mill/uL (4.70-6.10); White Blood Cell (WBC) Count 12.9 10x3/uL (4.8-10.8)
[2022-11-29 15:33] LABS: ALT (SGPT) 37 U/L (8-55); AST (SGOT) 40 U/L (5-34); Albumin 4.4 g/dL (3.4-4.8); Alkaline Phosphatase 156 U/L (40-110); Anion Gap 17 mmol/L (10-20); BUN (Urea Nitrogen) 22 mg/dL (8.4-25.7); Bilirubin, Total 0.9 mg/dL (0.2-1.2); Calc. Creatinine Clearance 0 mL/min (70-130); Calcium 9.6 mg/dL (7.8-10.44); Carbon Dioxide 23 mmol/L (23-31); Chloride 99 mmol/L (98-107); Estimated GFR 90; Glucose 108 mg/dL (83-110); Lipase 4 U/L (8-78); Potassium 4.2 mmol/L (3.5-5.1); Protein, Total 7.4 g/dL (5.8-8.1); Sodium 135 mmol/L (136-145)
[2022-11-29 15:37] LABS: Troponin I Less than 0.010 ng/mL (< 0.028)
[2022-11-29] MEDS ORDERED: Vancomycin 1.5 GRAM/300 ML BAG 1.5 GM in Premix Bag 1 BAG IVPB SCH (15:45)
[2022-11-29 16:28] LABS: Bacteria/HPF 3+ HPF (None Seen); Bilirubin Negative (Negative); Blood, Urine 3+ (Negative); CAUTI Indications for Culture Fever or rigors; Clarity Turbid (Clear); Glucose, Urine (Dipstick) Normal (Negative); Ketone, Urine Trace mg/dL (Negative); Leukocyte 500 Leu/uL (Negative); Nitrite 2+ (Negative); Protein, Urine (Dipstick) Negative (Neg-Trace); RBC/HPF Greater than 50 HPF (0-3); Specific Gravity, Urine 1.014 (1.002-1.036); Squamous Epithelial 0-3 HPF (0-3); Urobilinogen Normal mg/dL (Less than 2); WBC/HPF Greater than 50 HPF (0-3)
[2022-11-29 16:35] LABS: Urine Culture Reflex Yes Yes
[2022-11-29 16:37] LABS: INR-International Normal Ratio 1.1; Prothrombin Time 14.6 sec (12.0-14.7)
[2022-11-29 16:38] LABS: PTT 33.5 sec (22.9-36.1)
[2022-11-29 16:48] LABS: Magnesium 1.6 mg/dL (1.6-2.6)
[2022-11-29] MEDS ORDERED: Ondansetron PF 4 MG/2 ML Vial IVP PRN (17:52)
[2022-11-29] MEDS ORDERED: HYDROcodone/Acetaminophen 5/325 mg Tablet PO PRN (17:52)
[2022-11-29] MEDS ORDERED: Acetaminophen 325 MG TAB PO PRN (17:52)
[2022-11-29] MEDS ORDERED: Ipratropium/Albuterol 3 ML NEB NEB PRN (17:55)
[2022-11-29] MEDS ORDERED: Digoxin 0.5 MG/2 ML AMP SLOW IVP SCH (18:00)
[2022-11-29] MEDS ORDERED: Magnesium Sulfate In Water 4 GM in Premix Bag 1 BAG IVPB SCH ×2 (18:15→20:30)
[2022-11-29] MEDS ORDERED: Electrolyte Replacement Protocol 1 EACH FS PRN (18:30)
[2022-11-29 20:18] VITALS: BMI 23.8
[2022-11-29] MEDS: guaiFENesin ER 600 MG TAB PO SCH (20:25)
[2022-11-29] MEDS: Famotidine/PF 20 mg/2ml Vial SLOW IVP SCH (20:25)
[2022-11-29] MEDS: Rosuvastatin 10 MG TAB PO SCH (20:25)
[2022-11-29 20:48] LABS: Troponin I 0.016 ng/mL (< 0.028)
[2022-11-29 23:42] LABS: Troponin I 0.018 ng/mL (< 0.028)
[2022-11-30] MEDS: Vancomycin 1 GM in Premix Bag 1 BAG IVPB SCH ×2 (02:13→13:12)
[2022-11-30] MEDS ORDERED: Cefepime 1 GM in Sodium Chloride 0.9% 100 ML IVPB SCH (03:00)
[2022-11-30] MEDS: Levothyroxine Sodium 75 MCG TAB PO SCH (05:27)
[2022-11-30 05:28] LABS: #Basophils 0.1 thou/uL (0.0-0.2); #Eosinphils 0.1 thou/uL (0.0-0.7); #Monocytes 0.8 thou/uL (0.11-0.59); #Neutrophils 9.9 thou/uL (1.40-6.50); %Basophils 0.8 % (0.0-1.0); %Eosinophils 0.8 % (0.0-10.0); %Lymphocytes 7.9 % (21.0-51.0); %Neutrophils 82.7 % (42.0-75.0); Hematocrit 34.8 % (42.0-52.0); Hemoglobin 11.4 g/dL (14.0-18.0); Mean Corpuscular HGB CONC 32.8 g/dL (32.0-36.0); Mean Corpuscular Hemoglobin 30.6 pg (27.0-31.0); Mean Corpuscular Volume 93.5 fl (78.0-98.0); Platelet Count 238 10x3/uL (130-400); RBC Distribution Width 15.6 % (11.5-14.5); Red Blood Cell (RBC) Count 3.72 mill/uL (4.70-6.10)
[2022-11-30 06:08] LABS: Anion Gap 12 mmol/L (10-20); BUN (Urea Nitrogen) 18 mg/dL (8.4-25.7); Calc. Creatinine Clearance 86 mL/min (70-130); Calcium 8.6 mg/dL (7.8-10.44); Carbon Dioxide 24 mmol/L (23-31); Chloride 103 mmol/L (98-107); Estimated GFR 91; Glucose 108 mg/dL (83-110); Magnesium 2.3 mg/dL (1.6-2.6); Sodium 135 mmol/L (136-145)
[2022-11-30] MEDS: Furosemide 40 MG TAB PO SCH (06:35)
[2022-11-30] MEDS: Famotidine/PF 20 mg/2ml Vial SLOW IVP SCH ×2 (07:51→20:31)
[2022-11-30] MEDS: guaiFENesin ER 600 MG TAB PO SCH ×2 (07:52→20:31)
[2022-11-30] MEDS: Carvedilol 6.25 MG TAB PO SCH ×2 (07:52→17:12)
[2022-11-30] MEDS: Digoxin 0.125 MG TAB PO SCH (07:52)
[2022-11-30] MEDS: Cefepime 2 GM in Sodium Chloride 0.9% 100 ML IVPB SCH (14:56)
[2022-11-30] MEDS ORDERED: Polyethylene Glycol 3350 17 GM Packet PO PRN (17:00)
[2022-11-30] MEDS ORDERED: Polyethylene Glycol 3350 17 GM Packet PO SCH (17:00)
[2022-11-30] MEDS: Rosuvastatin 10 MG TAB PO SCH (20:31)
[2022-12-01 01:48] LABS: Vancomycin, Trough 12.5 ug/mL
[2022-12-01] MEDS: Vancomycin 1 GM in Premix Bag 1 BAG IVPB SCH (02:39)
[2022-12-01] MEDS: Cefepime 2 GM in Sodium Chloride 0.9% 100 ML IVPB SCH ×2 (03:47→14:08)
[2022-12-01] MEDS: Furosemide 40 MG TAB PO SCH (06:43)
[2022-12-01] MEDS: Levothyroxine Sodium 75 MCG TAB PO SCH (06:43)
[2022-12-01] MEDS: Famotidine/PF 20 mg/2ml Vial SLOW IVP SCH (09:48)
[2022-12-01] MEDS: guaiFENesin ER 600 MG TAB PO SCH (09:49)
[2022-12-01] MEDS: Digoxin 0.125 MG TAB PO SCH (09:49)
[2022-12-01] MEDS: Carvedilol 6.25 MG TAB PO SCH ×2 (09:49→16:10)
[2022-12-01] MEDS ORDERED: VANCOMYCIN 1.25 GM/250 ML BAG 1.25 GM in Premix Bag 1 BAG IVPB SCH (14:00)
[2022-12-01 15:19] VITALS: BP 156/70; TEMP 98
== END 2022-12-01 17:00 | disposition home or self-care (01) | DRG 871 ==
LOC: ERS 14:11 → IMCU/EMU 17:52 → 2NO 11-30 20:52
PROVIDERS: ADMIT Family Medicine; ATTEND Internal Medicine
DX: A41.9 Sepsis, unspecified organism (principal); J18.9 Pneumonia, unspecified organism; N39.0 Urinary tract infection, site not specified; I48.91 Unspecified atrial fibrillation; N40.0 Benign prostatic hyperplasia without lower urinary tract symptoms; I25.10 Atherosclerotic heart disease of native coronary artery without angina pectoris; I50.9 Heart failure, unspecified; I11.0 Hypertensive heart disease with heart failure; E03.9 Hypothyroidism, unspecified; I25.5 Ischemic cardiomyopathy; Z90.49 Acquired absence of other specified parts of digestive tract; Z90.89 Acquired absence of other organs; Z95.810 Presence of automatic (implantable) cardiac defibrillator; Z98.890 Other specified postprocedural states; Z79.899 Other long term (current) drug therapy; Z79.82 Long term (current) use of aspirin
CPT/HCPCS: 36415; 71045; 71275; 80048; 80053; 80202; 81001; 83605; 83690; 83735; 83880; 84443; 84484; 85025; 85610; 85730; 87040; 87077; 87081; 87086; 87186; 93005; 96361; 96365; 96366; 96375; 96376; J0692; J1160; J3370; J3370-JW; J3475; J3490; Q9967; S0028

== ENCOUNTER 2023-03-31 07:00 | Outpatient (CLI) | payer MEDICARE, BC | END 2023-03-31 07:01 | disposition home or self-care (01) | LOC: BICULT 07:00 | PROVIDERS: ATTEND Internal Medicine Rheumatology | DX: R79.89 Other specified abnormal findings of blood chemistry (principal) | CPT/HCPCS: 76705 ==

== ENCOUNTER 2023-05-12 08:13 | Outpatient (CLI) | payer MEDICARE, BC | END 2023-05-12 08:14 | disposition home or self-care (01) | LOC: BICMAMMO 08:13 | PROVIDERS: ATTEND Internal Medicine Rheumatology | DX: M81.0 Age-related osteoporosis without current pathological fracture (principal); M85.852 Other specified disorders of bone density and structure, left thigh | CPT/HCPCS: 77080 ==

== ENCOUNTER 2024-12-29 18:11 | Inpatient (IN) | payer MEDICARE, BC ==
[2024-12-29 20:30] LABS: #Basophils Less than 0.03 10x3/uL (0.0-0.2); #Eosinophils Less than 0.03 10x3/uL (0.0-0.7); #Monocytes 0.45 10x3/uL (0.11-0.59); #Neutrophils 9.71 10x3/uL (1.40-6.50); %Basophils 0.2 % (0.0-1.0); %Eosinophils 0.1 % (0.0-10.0); %Lymphocytes 10.3 % (21.0-51.0); %Monocytes 3.9 % (0.0-10.0); %Neutrophils 84.7 % (42.0-75.0); Hematocrit 40.2 % (42.0-52.0); Hemoglobin 13.0 g/dL (14.0-18.0); Mean Corpuscular Hemoglobin 30.2 pg (27.0-31.0); Mean Corpuscular Volume 93.3 fL (78.0-98.0); Platelet Count 193 10x3/uL (130-400); Red Blood Cell (RBC) Count 4.31 mill/uL (4.70-6.10); White Blood Cell (WBC) Count 11.46 10x3/uL (4.8-10.8)
[2024-12-29 20:42] LABS: Anion Gap 17 mmol/L (10-20); BUN (Urea Nitrogen) 24 mg/dL (8.4-25.7); Calc. Creatinine Clearance 0 mL/min (70-130); Calcium 9.2 mg/dL (7.8-10.44); Carbon Dioxide 22 mmol/L (23-31); Chloride 102 mmol/L (98-107); Glucose 97 mg/dL (83-110); Potassium 4.3 mmol/L (3.5-5.1); Sodium 137 mmol/L (136-145)
[2024-12-29 20:44] LABS: CAUTI Indications for Culture Dysuria,urgency,freq; Glucose, Urine (Dipstick) Greater than 1000 mg/dL (Negative); Leukocyte 75 Leu/uL (Negative); Protein, Urine (Dipstick) 20 mg/dL (Neg-Trace); RBC/HPF 0-3 HPF (0-3); Specific Gravity, Urine 1.022 (1.002-1.036); WBC/HPF 21-50 HPF (0-3)
[2024-12-29 20:50] LABS: Bacteria/HPF 1+ HPF (None Seen)
[2024-12-29 20:51] LABS: Urine Culture Reflex Yes Yes
[2024-12-29] MEDS ORDERED: hydrALAZINE 20 MG/ML VIAL SLOW IVP PRN (21:07)
[2024-12-29] MEDS ORDERED: Ondansetron PF 4 MG/2 ML Vial IVP PRN (21:07)
[2024-12-29] MEDS ORDERED: SUCCINYLCHOLINE/SOD CL,ISO/PF 200 MG/10 ML SYRINGE FS ONE (21:48)
[2024-12-29] MEDS ORDERED: Lidocaine 1% PF 5 ML VIAL ONE (21:48)
[2024-12-29] MEDS ORDERED: Etomidate 40 MG (20 mL) VIAL ONE (21:48)
[2024-12-29] MEDS ORDERED: fentaNYL PF 100 MCG/2 ML SYRINGE ONE (21:48)
[2024-12-29] MEDS ORDERED: Rocuronium Bromide 10 MG/ML (10ML VIAL) ONE (21:51)
[2024-12-29] MEDS ORDERED: NOREPINEPHRINE 8 MG/250 ML-D5W 250 ML ONE (21:53)
[2024-12-30] MEDS ORDERED: DISCONTINUE PREVIOUS NARCOTIC PAIN MEDICATIONS AND BENZODIAZEPINES FS SCH (00:45)
[2024-12-30] MEDS ORDERED: Fentanyl BOLUS 100 ML IVPB PRN (00:45)
[2024-12-30] MEDS ORDERED: Propofol BOLUS 1,000 MG/100 ML VIAL IV PRN (00:45)
[2024-12-30 01:00] LABS: #Basophils Less than 0.03 10x3/uL (0.0-0.2); #Eosinophils 0.03 10x3/uL (0.0-0.7); #Monocytes 0.32 10x3/uL (0.11-0.59); #Neutrophils 6.39 10x3/uL (1.40-6.50); %Basophils 0.1 % (0.0-1.0); %Eosinophils 0.4 % (0.0-10.0); %Lymphocytes 10.7 % (21.0-51.0); %Monocytes 4.2 % (0.0-10.0); %Neutrophils 83.3 % (42.0-75.0); Hematocrit 33.4 % (42.0-52.0); Hemoglobin 10.2 g/dL (14.0-18.0); Mean Corpuscular Hemoglobin 29.6 pg (27.0-31.0); Mean Corpuscular Volume 96.8 fL (78.0-98.0); Platelet Count 156 10x3/uL (130-400); Red Blood Cell (RBC) Count 3.45 mill/uL (4.70-6.10); White Blood Cell (WBC) Count 7.67 10x3/uL (4.8-10.8)
[2024-12-30 01:04] LABS: Actual Bicarbonate (HCO3a) 20.9 mEq/L (22-28); Base Excess (BEa) -2.1 mEq/L (-2.0 to +3.0); CO2 Tension 30.0 mmHg (35.0-45.0); Calcium, Ionized (arterial) 1.07 mmol/L (1.12-1.30); Hematocrit-ABG 35 % (42.0-52.0); Hemoglobin (Hb) 11.8 g/dL (14.0-18.0); O2 Tension (PaO2), arterial 200.1 mmHg (> 70.0); Potassium - ABG Lab 3.55 mmol/L (3.70-5.30); pH, Arterial 7.460 (7.35-7.45)
[2024-12-30 01:09] LABS: ALT (SGPT) 37 U/L (Less than 45); AST (SGOT) 33 U/L (11-34); Albumin 2.8 g/dL (3.1-4.5); Alkaline Phosphatase 71 U/L (40-110); Anion Gap 12 mmol/L (10-20); BUN (Urea Nitrogen) 19 mg/dL (8.4-25.7); Bilirubin, Total 1.1 mg/dL (0.3-1.2); Calc. Creatinine Clearance 0 mL/min (70-130); Calcium 7.9 mg/dL (7.8-10.44); Carbon Dioxide 21 mmol/L (23-31); Chloride 109 mmol/L (98-107); Globulin 2.2 g/dL (2.4-3.5); Glucose 93 mg/dL (83-110); Magnesium 1.7 mg/dL (1.6-2.6); Potassium 3.6 mmol/L (3.5-5.1); Sodium 138 mmol/L (136-145)
[2024-12-30] MEDS: Ketorolac Tromethamine 30 MG (1 mL) VIAL IVP SCH (01:26)
[2024-12-30] MEDS: Ventilator Sedation Protocol 1 EACH FS ONE (02:07)
[2024-12-30] MEDS: Magnesium 2 GM/50 ML(in water) 2 GM in Premix 1 BAG IVPB SCH (02:17)
[2024-12-30] MEDS: Albumin 25% 25 GM (100 mL) BOT IVPB SCH ×2 (03:13→19:39)
[2024-12-30 03:24] VITALS: BMI 22.7
[2024-12-30 04:03] LABS: #Basophils Less than 0.03 10x3/uL (0.0-0.2); #Eosinophils Less than 0.03 10x3/uL (0.0-0.7); #Monocytes 0.24 10x3/uL (0.11-0.59); #Neutrophils 6.25 10x3/uL (1.40-6.50); %Basophils 0.3 % (0.0-1.0); %Eosinophils 0.3 % (0.0-10.0); %Lymphocytes 11.1 % (21.0-51.0); %Monocytes 3.2 % (0.0-10.0); %Neutrophils 84.4 % (42.0-75.0); Hematocrit 32.0 % (42.0-52.0); Hemoglobin 10.0 g/dL (14.0-18.0); Mean Corpuscular Hemoglobin 29.8 pg (27.0-31.0); Mean Corpuscular Volume 95.2 fL (78.0-98.0); Platelet Count 139 10x3/uL (130-400); Red Blood Cell (RBC) Count 3.36 mill/uL (4.70-6.10); White Blood Cell (WBC) Count 7.40 10x3/uL (4.8-10.8)
[2024-12-30 04:23] LABS: ALT (SGPT) 35 U/L (Less than 45); AST (SGOT) 28 U/L (11-34); Albumin 3.1 g/dL (3.1-4.5); Alkaline Phosphatase 68 U/L (40-110); Anion Gap 13 mmol/L (10-20); BUN (Urea Nitrogen) 22 mg/dL (8.4-25.7); Bilirubin, Total 0.9 mg/dL (0.3-1.2); Calc. Creatinine Clearance 133 mL/min (70-130); Calcium 7.9 mg/dL (7.8-10.44); Carbon Dioxide 20 mmol/L (23-31); Chloride 109 mmol/L (98-107); Globulin 2.0 g/dL (2.4-3.5); Glucose 88 mg/dL (83-110); Potassium 3.3 mmol/L (3.5-5.1); Sodium 139 mmol/L (136-145)
[2024-12-30] MEDS: cefTRIAXone\\ROCEPHIN 1 GM in Sodium Chloride 0.9% 100 ML IVPB SCH (06:14)
[2024-12-30 06:49] LABS: Glucose 79 mg/dL (83-110)
[2024-12-30] MEDS ORDERED: Potassium Chloride 20 MEQ in Premix 1 BAG IVPB SCH (08:00)
[2024-12-30] MEDS: Mupirocin 1 GM TUBE NASAL DECOLONIZATION NASAL SCH (08:44)
[2024-12-30] MEDS: Famotidine/PF 20 mg/2ml Vial SLOW IVP SCH (08:52)
[2024-12-30] MEDS: Digoxin 0.125 MG TAB PO SCH (09:05)
[2024-12-30] MEDS: Metoprolol Succinate XL 50 MG ER.TAB PO SCH ×2 (09:05→21:04)
[2024-12-30] MEDS: Rosuvastatin 10 MG TAB PO SCH (09:05)
[2024-12-30] MEDS ORDERED: Electrolyte Replacement Protocol 1 EACH FS SCH (09:15)
[2024-12-30] MEDS: DC Sedation Protocol FS ONE (09:19)
[2024-12-30 12:18] LABS: Glucose 124 mg/dL (83-110)
[2024-12-30 17:14] LABS: Albumin 2.5 g/dL (3.1-4.5); Anion Gap 9 mmol/L (10-20); BUN (Urea Nitrogen) 21 mg/dL (8.4-25.7); BUN/Creatinine Ratio 38.89; Calc. Creatinine Clearance 113 mL/min (70-130); Calcium 7.6 mg/dL (7.8-10.44); Carbon Dioxide 24 mmol/L (23-31); Chloride 108 mmol/L (98-107); Glucose 96 mg/dL (83-110); Magnesium 2.1 mg/dL (1.6-2.6); Potassium 3.4 mmol/L (3.5-5.1); Sodium 138 mmol/L (136-145)
[2024-12-30] MEDS: Potassium Chloride 20 MEQ in Premix 1 BAG IVPB PRN (17:40)
[2024-12-30] MEDS: Heparin 5,000 UNITS/ML VIAL SC SCH (20:01)
[2024-12-30] MEDS ORDERED: Albumin 25% 25 GM (100 mL) BOT IVPB SCH (23:59)
[2024-12-31] MEDS: HYDROcodone/Acetaminophen 5/325 mg Tablet PO PRN (01:50)
[2024-12-31 04:44] LABS: #Basophils Less than 0.03 10x3/uL (0.0-0.2); #Eosinophils 0.07 10x3/uL (0.0-0.7); #Monocytes 0.25 10x3/uL (0.11-0.59); #Neutrophils 4.33 10x3/uL (1.40-6.50); %Basophils 0.4 % (0.0-1.0); %Eosinophils 1.3 % (0.0-10.0); %Lymphocytes 10.3 % (21.0-51.0); %Monocytes 4.8 % (0.0-10.0); %Neutrophils 82.4 % (42.0-75.0); Hematocrit 31.4 % (42.0-52.0); Hemoglobin 9.3 g/dL (14.0-18.0); Mean Corpuscular Hemoglobin 29.4 pg (27.0-31.0); Mean Corpuscular Volume 99.4 fL (78.0-98.0); Platelet Count 125 10x3/uL (130-400); Red Blood Cell (RBC) Count 3.16 mill/uL (4.70-6.10); White Blood Cell (WBC) Count 5.25 10x3/uL (4.8-10.8)
[2024-12-31 04:57] LABS: ALT (SGPT) 27 U/L (Less than 45); AST (SGOT) 23 U/L (11-34); Albumin 2.7 g/dL (3.1-4.5); Alkaline Phosphatase 65 U/L (40-110); Anion Gap 13 mmol/L (10-20); BUN (Urea Nitrogen) 20 mg/dL (8.4-25.7); Bilirubin, Total 0.6 mg/dL (0.3-1.2); Calc. Creatinine Clearance 115 mL/min (70-130); Calcium 7.7 mg/dL (7.8-10.44); Carbon Dioxide 22 mmol/L (23-31); Chloride 110 mmol/L (98-107); Globulin 2.0 g/dL (2.4-3.5); Glucose 138 mg/dL (83-110); Potassium 3.7 mmol/L (3.5-5.1); Sodium 141 mmol/L (136-145)
[2024-12-31] MEDS: Digoxin 0.5 MG/2 ML AMP SLOW IVP SCH (09:04)
[2024-12-31] MEDS: predniSONE 20 MG TAB PO SCH (09:13)
[2024-12-31] MEDS: Albumin 25% 25 GM (100 mL) BOT IVPB SCH ×2 (09:13→14:22)
[2025-01-01 04:26] LABS: #Basophils Less than 0.03 10x3/uL (0.0-0.2); #Eosinophils 0.04 10x3/uL (0.0-0.7); #Monocytes 0.28 10x3/uL (0.11-0.59); #Neutrophils 3.35 10x3/uL (1.40-6.50); %Basophils 0.2 % (0.0-1.0); %Eosinophils 0.9 % (0.0-10.0); %Lymphocytes 14.5 % (21.0-51.0); %Monocytes 6.5 % (0.0-10.0); %Neutrophils 77.4 % (42.0-75.0); Hematocrit 34.1 % (42.0-52.0); Hemoglobin 10.6 g/dL (14.0-18.0); Mean Corpuscular Hemoglobin 29.7 pg (27.0-31.0); Mean Corpuscular Volume 95.5 fL (78.0-98.0); Platelet Count 134 10x3/uL (130-400); Red Blood Cell (RBC) Count 3.57 mill/uL (4.70-6.10); White Blood Cell (WBC) Count 4.33 10x3/uL (4.8-10.8)
[2025-01-01 04:39] LABS: ALT (SGPT) 24 U/L (Less than 45); AST (SGOT) 29 U/L (11-34); Albumin 3.3 g/dL (3.1-4.5); Alkaline Phosphatase 86 U/L (40-110); Anion Gap 12 mmol/L (10-20); BUN (Urea Nitrogen) 16 mg/dL (8.4-25.7); Bilirubin, Total 0.6 mg/dL (0.3-1.2); Calc. Creatinine Clearance 133 mL/min (70-130); Calcium 8.1 mg/dL (7.8-10.44); Carbon Dioxide 22 mmol/L (23-31); Chloride 107 mmol/L (98-107); Globulin 1.8 g/dL (2.4-3.5); Glucose 90 mg/dL (83-110); Potassium 3.6 mmol/L (3.5-5.1); Sodium 137 mmol/L (136-145)
[2025-01-01] MEDS: predniSONE 20 MG TAB PO SCH (08:12)
[2025-01-01] MEDS: Digoxin 0.125 MG TAB PO SCH (08:14)
[2025-01-01 10:13] LABS: Magnesium 2.1 mg/dL (1.6-2.6)
[2025-01-02 04:53] LABS: Albumin 3.4 g/dL (3.1-4.5); Anion Gap 13 mmol/L (10-20); BUN (Urea Nitrogen) 13 mg/dL (8.4-25.7); BUN/Creatinine Ratio 26.00; Calc. Creatinine Clearance 129 mL/min (70-130); Calcium 8.5 mg/dL (7.8-10.44); Carbon Dioxide 22 mmol/L (23-31); Chloride 106 mmol/L (98-107); Glucose 86 mg/dL (83-110); Potassium 3.6 mmol/L (3.5-5.1); Sodium 137 mmol/L (136-145)
[2025-01-02] MEDS: PHOS-NAK 1 PKT PACK PO PRN (05:38)
[2025-01-02 06:44] LABS: Magnesium 2.0 mg/dL (1.6-2.6)
[2025-01-02] MEDS: Potassium Phosphate 30 MMOL in Sodium Chloride 0.9% 250 ML 250 ML IVPB SCH (10:33)
[2025-01-03 07:04] LABS: #Basophils 0.04 10x3/uL (0.0-0.2); #Eosinophils 0.10 10x3/uL (0.0-0.7); #Monocytes 0.61 10x3/uL (0.11-0.59); #Neutrophils 4.13 10x3/uL (1.40-6.50); %Basophils 0.7 % (0.0-1.0); %Eosinophils 1.7 % (0.0-10.0); %Lymphocytes 18.2 % (21.0-51.0); %Monocytes 10.1 % (0.0-10.0); %Neutrophils 68.1 % (42.0-75.0); Hematocrit 35.4 % (42.0-52.0); Hemoglobin 10.7 g/dL (14.0-18.0); Mean Corpuscular Hemoglobin 29.2 pg (27.0-31.0); Mean Corpuscular Volume 96.5 fL (78.0-98.0); Platelet Count 202 10x3/uL (130-400); Red Blood Cell (RBC) Count 3.67 mill/uL (4.70-6.10); White Blood Cell (WBC) Count 6.05 10x3/uL (4.8-10.8)
[2025-01-03 07:22] LABS: Albumin 3.6 g/dL (3.1-4.5); Anion Gap 14 mmol/L (10-20); BUN (Urea Nitrogen) 13 mg/dL (8.4-25.7); BUN/Creatinine Ratio 22.81; Calc. Creatinine Clearance 113 mL/min (70-130); Calcium 8.9 mg/dL (7.8-10.44); Carbon Dioxide 25 mmol/L (23-31); Chloride 105 mmol/L (98-107); Glucose 88 mg/dL (83-110); Magnesium 1.9 mg/dL (1.6-2.6); Potassium 3.9 mmol/L (3.5-5.1); Sodium 140 mmol/L (136-145)
[2025-01-03] MEDS: PHOS-NAK 1 PKT PACK PO SCH (08:29)
[2025-01-03] MEDS: Famotidine 20 MG TAB PO SCH (08:29)
[2025-01-03] MEDS: Metoprolol Succinate XL 100 MG ER.TAB PO SCH (10:18)
[2025-01-03 12:46] VITALS: BMI 24.0
[2025-01-03] MEDS: Magnesium 2 GM/50 ML(in water) 2 GM in Premix 1 BAG IVPB PRN (15:04)
[2025-01-04 05:52] LABS: Magnesium 2.1 mg/dL (1.6-2.6)
[2025-01-04 07:18] LABS: Albumin 3.3 g/dL (3.1-4.5); Anion Gap 14 mmol/L (10-20); BUN (Urea Nitrogen) 12 mg/dL (8.4-25.7); BUN/Creatinine Ratio 22.22; Calc. Creatinine Clearance 119 mL/min (70-130); Calcium 8.6 mg/dL (7.8-10.44); Carbon Dioxide 25 mmol/L (23-31); Chloride 105 mmol/L (98-107); Glucose 90 mg/dL (83-110); Potassium 3.8 mmol/L (3.5-5.1); Sodium 140 mmol/L (136-145)
[2025-01-04 16:30] VITALS: BP 140/87; TEMP 98.2
== END 2025-01-04 17:46 | disposition home health service (06) | DRG 329 ==
LOC: ERS 18:11 → SDC/OP 22:10 → CCU 12-30 00:29 → IMCU/EMU 12-30 21:06 → 2NO 01-01 10:27
PROVIDERS: ADMIT Surgery; ATTEND Surgery
PROC: 3E03329 Introduction of Other Anti-infective into Peripheral Vein, Percutaneous Approach (ICD-10-PCS; 2024-12-29)
PROC: 0DBN0ZZ Excision of Sigmoid Colon, Open Approach (ICD-10-PCS; principal; 2024-12-30)
PROC: 0D1E0Z4 Bypass Large Intestine to Cutaneous, Open Approach (ICD-10-PCS; 2024-12-30)
PROC: 5A1935Z Respiratory Ventilation, Less than 24 Consecutive Hours (ICD-10-PCS; 2024-12-30)
PROC: 30233J1 Transfusion of Nonautologous Serum Albumin into Peripheral Vein, Percutaneous Approach (ICD-10-PCS; 2024-12-31)
DX: K65.9 Peritonitis, unspecified (principal); A41.9 Sepsis, unspecified organism; J95.821 Acute postprocedural respiratory failure; K63.1 Perforation of intestine (nontraumatic); N39.0 Urinary tract infection, site not specified; I50.22 Chronic systolic (congestive) heart failure; E87.21 Acute metabolic acidosis; I42.8 Other cardiomyopathies; N12 Tubulo-interstitial nephritis, not specified as acute or chronic; E27.40 Unspecified adrenocortical insufficiency; E78.5 Hyperlipidemia, unspecified; N40.0 Benign prostatic hyperplasia without lower urinary tract symptoms; E11.9 Type 2 diabetes mellitus without complications; Z98.890 Other specified postprocedural states; K59.00 Constipation, unspecified; E03.9 Hypothyroidism, unspecified; I48.0 Paroxysmal atrial fibrillation; I25.10 Atherosclerotic heart disease of native coronary artery without angina pectoris; N18.9 Chronic kidney disease, unspecified; I12.9 Hypertensive chronic kidney disease with stage 1 through stage 4 chronic kidney disease, or unspecified chronic kidney disease; E11.21 Type 2 diabetes mellitus with diabetic nephropathy; E87.6 Hypokalemia; I95.9 Hypotension, unspecified; E83.39 Other disorders of phosphorus metabolism; R41.0 Disorientation, unspecified; D50.0 Iron deficiency anemia secondary to blood loss (chronic); Z79.899 Other long term (current) drug therapy; Z79.82 Long term (current) use of aspirin; Z79.890 Hormone replacement therapy
CPT/HCPCS: 36415; 36416; 71045; 74176; 80048; 80053; 80061; 80069; 80076; 81001; 82805; 83036; 83605; 83735; 84100; 84443; 85025; 86850; 86900; 86901; 87040; 87070; 87077; 87086; 87186; 87205; 88307; 94002; 94003; 96365; 96366; 97139; A4314; A4649; A5063; G0103; J0696; J1160; J1308; J1644; J1815; J1885; J2543; J2704; J3010; J3475; J3480; J7030; J7050; J7120; J7512; J7517; P9047

== ENCOUNTER 2025-01-05 02:11 | Emergency (ER) | payer MEDICARE, BC | END 2025-01-05 06:54 | disposition left against medical advice (07) | LOC: ERS 02:11 | DX: Z53.21 Procedure and treatment not carried out due to patient leaving prior to being seen by health care provider (principal) ==